=== PATIENT | female | born 1935 | race Caucasian/White ===

== ENCOUNTER 2018-02-27 03:47 | Emergency (ER) | END 2018-02-27 12:25 | disposition home or self-care (01) ==

== ENCOUNTER 2018-05-19 01:47 | Observation (INO) | payer MEDICARE, OTHER ==
[2018-05-19] VITALS (13 sets, daily range): BP systolic 87–162; BP diastolic 58–104; PULSE 67–84; RESP 12–21; Ht 160 cm; Wt 85.0 kg
[~2018-05-19] VITALS: Ht 160 cm; Wt 85.0 kg
[~2018-05-19 01:47] MED LIST: AMOX1TAB10 PO; CLOP75TA27 PO; DEXL60CA2 PO; DONE10TA7 PO; GLIM4TAB PO; LEVO88TA PO; LORA1TAB PO; LUBI24CA7 PO; MECL-77 PO; MEMA14CA PO; METF500T24 PO; METO-335 PO; ONDA4TAB14 PO; ROSU20TA PO; [UNRECOGNIZED DRUG - CODE] PO
--- NOTE | 2018-05-19 04:00 | ERD ---
ER Documentation Chief Complaint Chief Complaint Pt c/o CP and numbness and tingling in fingers HPI This is an 83-year-old female brought in by rescue with complaint of chest pain and numbness and tingling in her fingers. States that the numbness is really in her left arm tingling is in her left arm as well. Denies any fevers chills nausea vomiting. Chest pain is mild to moderate intensity with no exacerbating or alleviating factors. ROS All systems reviewed and are negative except as per history of present illness. Medications Home Meds Active Scripts Amoxicillin/Potassium Clav (Amox-Clav 875-125 mg Tablet) 875-125 mg Tab, 1 TAB PO BID for 10 Days, #20 TAB Prov:LYNN CHAPARRO MD 02/27/18 Ondansetron (Ondansetron Odt) 4 Mg Tab.rapdis, 4 MG PO Q6H PRN for NAUSEA AND/OR VOMITING, #10 TAB Prov:REBA BEYER MD 02/27/18 Reported Medications Levothyroxine Sodium* (Synthroid*) 88 Mcg Tablet, 88 MCG PO BEFORE BREAKFAST, #30 TAB 02/27/18 Rosuvastatin Calcium* (Crestor*) 20 Mg Tablet, 20 MG PO QHS, #30 TAB 02/27/18 Dexlansoprazole (Dexilant) 60 Mg Cap, 60 MG PO DAILY, #30 CAP 02/27/18 Lubiprostone* (Amitiza*) 24 Mcg Capsule, 24 MCG PO BID, #60 CAP 02/27/18 Metoprolol Succinate* (Toprol XL*) 25 Mg Tab.sr.24h, 25 MG PO DAILY, #30 TAB 02/27/18 Clopidogrel Bisulfate (Clopidogrel) 75 Mg Tablet, 75 MG PO DAILY, #30 TAB 02/27/18 Glimepiride* (Glimepiride*) 4 Mg Tablet, 4 MG PO WITH BREAKFAST DINNE, TAB 02/27/18 Metformin Hcl* (Metformin Hcl*) 500 Mg Tablet, 500 MG PO WITH BREAKFAST, #30 TAB 02/27/18 Meclizine Hcl* (Meclizine Hcl*) 25 Mg Tablet, 25 MG PO Q8H PRN for DIZZINESS, TAB 02/27/18 Memantine* (Namenda* XR) 14 Mg Cap.spr.24, 14 MG PO DAILY, #30 TAB 02/27/18 Donepezil* (Aricept*) 10 Mg Tablet, 10 MG PO DAILY, TAB 02/27/18 Lorazepam* (Lorazepam*) 1 Mg Tablet, 1 MG PO DAILY PRN for ANXIETY, #30 TAB 02/27/18 Amlodipine Bes/Olmesartan Med (Amlodipine-Olmesartan 5-20 mg) 1 Each Tablet, 1 EACH PO DAILY, TAB 02/27/18 Allergies Allergies: Coded Allergies: No Known Allergy (Unverified , 02/27/18) PMhx/Soc History of Surgery: Yes (appendectomy) Anesthesia Reaction: No Hx Neurological Disorder: No Hx Respiratory Disorders: No Hx Cardiac Disorders: Yes (htn, hld) Hx Psychiatric Problems: No Hx Miscellaneous Medical Probl: Yes (DM) Hx Alcohol Use: No Hx Substance Use: No Hx Tobacco Use: No Smoking Status: Never smoker Physical Exam Vitals Vital Signs Date Temp Pulse Resp B/P (MAP) Pulse Ox O2 O2 Flow FiO2 Time Delivery Rate 05/19/18 98.3 72 16 112/64 98 01:54 (80) Physical Exam Const: No acute distress Head: Atraumatic Eyes: Normal Conjunctiva ENT: Normal External Ears, Nose and Mouth. Neck: Full range of motion. No meningismus. Resp: Clear to auscultation bilaterally Cardio: Regular rate and rhythm, no murmurs Abd: Soft, non tender, non distended. Normal bowel sounds Skin: No petechiae or rashes Back: No midline or flank tenderness Ext: No cyanosis, or edema Neur: Awake and alert Psych: Normal Mood and Affect Result Diagram: 05/19/1820805/19/18 0209 Results 24 hrs Laboratory Tests Test 05/19/18 02:09 White Blood Count 8.8 10^3/ul Red Blood Count 4.55 10^6/ul Hemoglobin 13.2 g/dl Hematocrit 38.8 % Mean Corpuscular Volume 85.3 fl Mean Corpuscular Hemoglobin 29.0 pg Mean Corpuscular Hemoglobin Concent 34.0 g/dl Red Cell Distribution Width 13.9 % Platelet Count 264 10^3/UL Mean Platelet Volume 9.7 fl Immature Granulocytes % 0.300 % Neutrophils % 57.1 % Lymphocytes % 32.8 % Monocytes % 5.6 % Eosinophils % 3.6 % Basophils % 0.6 % Nucleated Red Blood Cells % 0.0 /100WBC Immature Granulocytes # 0.030 10^3/ul Neutrophils # 5.0 10^3/ul Lymphocytes # 2.9 10^3/ul Monocytes # 0.5 10^3/ul Eosinophils # 0.3 10^3/ul Basophils # 0.1 10^3/ul Nucleated Red Blood Cells # 0.0 10^3/ul Sodium Level 139 mmol/L Potassium Level 3.4 mmol/L Chloride Level 105 mmol/L Carbon Dioxide Level 18 mmol/L Anion Gap 16 Blood Urea Nitrogen 12 mg/dl Creatinine 0.72 mg/dl Est Glomerular Filtrat Rate mL/min mL/min Glucose Level 162 mg/dl Calcium Level 9.7 mg/dl Total Bilirubin 0.8 mg/dl Direct Bilirubin 0.00 mg/dl Indirect Bilirubin 0.8 mg/dl Aspartate Amino Transf (AST/SGOT) 32 IU/L Alanine Aminotransferase (ALT/SGPT) 18 IU/L Alkaline Phosphatase 94 IU/L Troponin I < 0.012 ng/ml B-Type Natriuretic Peptide 29 PG/ML Total Protein 7.5 g/dl Albumin 4.7 g/dl Globulin 2.80 g/dl Albumin/Globulin Ratio 1.67 Procedures/MDM EKG: Rate/Rhythm: [Normal Sinus Rhythm] QRS, ST, T-waves: [No changes consistent w/ acute ischemia] Impression: [No evidence of ischemia or arrhythmia] Chest X-ray 1V Interpreted by me: Soft Tissue: No acute abnormalities Bones: No acute abnormalities Mediastinum/Cardiac Silhouette/Lungs: [No acute abnormalities] Patient's symptoms are concerning for cardiac cause will require inpatient workup and continuous monitoring. Further w/u for ischemia, arrhythmia, PE or dissection will be deferred to the inpatient team. Accepting Care Team: Current data and ongoing care discussed. Time: 4 AM Primary Provider: Hospitalist Consulting: Deferred to inpatient team Outstanding Data: none Departure Diagnosis: Primary Impression: Chest pain Chest pain type: unspecified Qualified Codes: R07.9 - Chest pain, unspecified Condition: Serious GRAYSON MELGOZAAnastasia May 19, 2018 04:00
[2018-05-19] MEDS ORDERED: NITROGLYCERIN (SL) 0.4 MG TAB SL PRN (04:30)
[2018-05-19] MEDS ORDERED: ALBUTEROL/IPRATROPIUM (NEB) 3 ML AMP HHN PRN (04:30)
[2018-05-19] MEDS ORDERED: NACL 0.9% 3 ML SYG IV SCH (04:30)
[2018-05-19] MEDS ORDERED: LORAZEPAM 1 MG TAB PO PRN (04:30)
[2018-05-19] MEDS ORDERED: ACETAMINOPHEN 325 MG TAB PO PRN (04:30)
[2018-05-19] MEDS ORDERED: MECLIZINE 25 MG TAB PO PRN (04:30)
[2018-05-19] MEDS: PANTOPRAZOLE (EC) 40 MG TAB PO SCH (08:40)
[2018-05-19] MEDS: LEVOTHYROXINE 88 MCG TAB PO SCH (08:41)
[2018-05-19] MEDS: HEPARIN 5,000 UNIT/1 ML VIAL SC SCH ×2 (08:42→21:44)
[2018-05-19] MEDS ORDERED: OLMESARTAN MED PO SCH (09:00)
[2018-05-19] MEDS ORDERED: DONEPEZIL 10 MG TAB PO SCH (09:00)
[2018-05-19] MEDS ORDERED: [UNRECOGNIZED DRUG - OTHER] PO SCH (09:00)
[2018-05-19] MEDS ORDERED: CLOPIDOGREL 75 MG TAB PO SCH (09:00)
[2018-05-19] MEDS ORDERED: LUBIPROSTONE 24 MCG CAP PO SCH (09:00)
[2018-05-19] MEDS: METOPROLOL (XL) 25 MG TAB PO SCH (09:00)
[2018-05-19] MEDS ORDERED: AMLODIPINE BES PO SCH (09:00)
[2018-05-19] MEDS ORDERED: MEMANTINE 5 MG TAB PO SCH (09:00)
--- NOTE | 2018-05-19 09:28 | HP ---
Date/Time of Note Date/Time of Note DATE: 05/19/18 TIME: 09:23 Assessment/Plan VTE Prophylaxis Pharmacological prophylaxis: heparin Lines/Catheters IV Catheter Type (from Nrsg): Saline Lock Assessment/Plan Assessment/Plan 83-year-old female with dementia, hypertension, hypothyroidism, dyslipidemia, type 2 diabetes, possible CAD(due to the fact that she is on Plavix at home) here with chest pain. Will rule out ACS 1. Chest pain: Rule out ACS -Telemetry monitoring -Continue Plavix, statin. As needed nitro -2D echo cardiology consult 2. Hypertension: BP within goal 3. Type 2 diabetes: Continue metformin 4. Dementia: Continue donepezil 5. Dyslipidemia: Continue statin 6. Hypothyroidism: Continue Synthroid Result Diagram: 05/19/18 0209 05/19/18 020 Results 24hrs Laboratory Tests Test 05/19/18 02:09 05/19/18 07:42 05/19/18 09:01 White Blood Count 8.8 # Red Blood Count 4.55 Hemoglobin 13.2 Hematocrit 38.8 Mean Corpuscular Volume 85.3 Mean Corpuscular Hemoglobin 29.0 Mean Corpuscular Hemoglobin Concent 34.0 Red Cell Distribution Width 13.9 Platelet Count 264 # Mean Platelet Volume 9.7 Immature Granulocytes % 0.300 Neutrophils % 57.1 Lymphocytes % 32.8 Monocytes % 5.6 Eosinophils % 3.6 Basophils % 0.6 Nucleated Red Blood Cells % 0.0 Immature Granulocytes # 0.030 Neutrophils # 5.0 Lymphocytes # 2.9 Monocytes # 0.5 Eosinophils # 0.3 Basophils # 0.1 Nucleated Red Blood Cells # 0.0 Sodium Level 139 Potassium Level 3.4 L Chloride Level 105 Carbon Dioxide Level 18 L Anion Gap 16 H Blood Urea Nitrogen 12 Creatinine 0.72 Est Glomerular Filtrat Rate mL/min Glucose Level 162 Calcium Level 9.7 Total Bilirubin 0.8 Direct Bilirubin 0.00 Indirect Bilirubin 0.8 Aspartate Amino Transf (AST/SGOT) 32 Alanine Aminotransferase (ALT/SGPT) 18 Alkaline Phosphatase 94 Troponin I < 0.012 < 0.012 B-Type Natriuretic Peptide 29 Total Protein 7.5 Albumin 4.7 Globulin 2.80 Albumin/Globulin Ratio 1.67 Creatine Kinase 70 Creatine Kinase Index 2.1 Creatinine Kinase MB (Mass) 1.46 Bedside Glucose 105 HPI/ROS Admit Date/Time Admit Date/Time Hx of Present Illness This is an 83-year-old female with a history of dementia, hypertension, hypothyroidism, dyslipidemia, type 2 diabetes, possible CAD(given patient is on Plavix. CVA is also possibility) who presents the ER complaining of chest pain. Patient is slow when answering questions. She said chest pain is left-sided, described as tightness and pressure-like. She said this is her ribs episode of chest pain over the past year or 2. She states she did go to another hospital when she last had a chest pain. She is not sure what was done, but when I described cardiac cath, she denied. When presented to ER, vitals were stable. First troponin and EKG negative. CBC and CMP WNL. PMH/Family/Social Past Medical History Medications Current Medications IV Flush (NS 3 ml) 3 ml PER PROTOCOL IV ; Start 05/19/18 at 04:30 Ondansetron HCl (Zofran Inj) 4 mg Q6H PRN IV NAUSEA AND/OR VOMITING; Start at 04:30 Nitroglycerin (Nitroglycerin (Sl Tab) 0.4 Mg) 1 tab Q5M PRN SL CHEST PAIN; Start 05/19/18 at 04:30 Acetaminophen (Tylenol Tab) 650 mg Q6H PRN PO PAIN LEVEL 1-3 OR FEVER Last administered on 05/19/18at 08:40; Admin Dose 650 MG; Start 05/19/18 at 04:30 Heparin Sodium (Porcine) (Heparin (5000 Units/1ml)) 5,000 unit Q12 SC Last administered on 05/19/18at 08:42; Admin Dose 5,000 UNIT; Start 05/19/18 at 09:00 Albuterol/ Ipratropium (Duoneb) 3 ml Q2H RESP THERAPY PRN HHN SHORTNESS OF BREATH; Start 05/19/18 at 04:30 Clopidogrel Bisulfate (plaVIX) 75 mg DAILY PO Last administered on 05/19/18at 08:40; Admin Dose 75 MG; Start 05/19/18 at 09:00 Donepezil HCl (Aricept) 10 mg DAILY PO Last administered on 05/19/18at 08:41; Admin Dose 10 MG; Start 05/19/18 at 09:00 Levothyroxine Sodium (Synthroid) 88 mcg BEFORE BREAKFAST PO Last administered on 05/19/18at 08:41; Admin Dose 88 MCG; Start 05/19/18 at 07:00 Lorazepam (Ativan) 1 mg DAILY PRN PO ANXIETY; Start 05/19/18 at 04:30 Lubiprostone (Amitiza) 24 mcg BID PO Last administered on 05/19/18at 08:41; Admin Dose 24 MCG; Start 05/19/18 at 09:00 Meclizine HCl (Antivert) 25 mg Q8H PRN PO dizzy, vertigo; Start 05/19/18 at 04:30 Metoprolol Succinate (Toprol Xl) 25 mg DAILY PO ; Start 05/19/18 at 09:00 Miscellaneous Information 1 each DAILY PO ; Start 05/19/18 at 09:00; Status UNV Pantoprazole (Protonix Tab) 40 mg DAILY@06 PO Last administered on 05/19/18at 08:40; Admin Dose 40 MG; Start 05/19/18 at 06:00 Memantine (Namenda) 5 mg BID PO Last administered on 05/19/18at 08:41; Admin Dose 5 MG; Start 05/19/18 at 09:00 Atorvastatin Calcium (Lipitor) 80 mg DAILY@21 PO ; Start 05/19/18 at 21:00 Coded Allergies: No Known Allergy (Unverified , 02/27/18) Family History Significant Family History: no pertinent family hx Social History Alcohol Use: none Smoking Status: Never smoker Drug Use: none Exam/Review of Systems Vital Signs Vitals Vital Signs Date Temp Pulse Resp B/P (MAP) Pulse Ox O2 O2 Flow FiO2 Time Delivery Rate 05/19/18 98.6 66 16 118/67 96 Room Air 06:30 (84) Exam Exam Constitutional: alert, oriented, well developed, other Head: normocephalic, atraumatic Respiratory: normal air movement Cardiovascular: regular rate and rhythm Gastrointestinal: soft Extremities: normal pulses PMH: see HPI PSH: see HPI . GRAYSON WILLIAM MD May 19, 2018 09:28
[2018-05-19] MEDS ORDERED: AMLODIPINE 5 MG TAB PO SCH (12:55)
[2018-05-19] MEDS ORDERED: LOSARTAN 50 MG TAB PO SCH (12:56)
[2018-05-19] MEDS: ONDANSETRON 4 MG INJ IV PRN ×2 (13:13→21:36)
--- NOTE | 2018-05-19 15:12 | PN ---
Date/Time of Note Date/Time of Note DATE: 05/19/18 TIME: 15:05 Assessment/Plan VTE Prophylaxis SCD applied (from Nsg): Yes Pharmacological prophylaxis: heparin Lines/Catheters IV Catheter Type (from Nrsg): Saline Lock Assessment/Plan Hospital Course 83 yo female with h/o hypertension and DMII who has suffered from recurrent naus ea, dyspepsia and vomiting for which she presetns to the hospital. Problem has been ongoing for at least months. Greatly impairs quality of life. Can't eat. Has never had EGD - GI consult for EGD - Needs antacids and antiemetics - ACS excluded, doubt this is a cardiac issue - Of note this patient does not have dementia, seems to have normal cognition. Dc memenatine and donepazil - Never had MA or stroke. Will stop plavix - No need for atorvastatin 82 Result Diagram: 05/19/18 0209 05/19/18 0209 Results 24hrs Laboratory Tests Test 05/19/18 02:09 05/19/18 07:42 05/19/18 09:01 05/19/18 14:08 White Blood Count 8.8 # Red Blood Count 4.55 Hemoglobin 13.2 Hematocrit 38.8 Mean Corpuscular 85.3 Volume Mean Corpuscular 29.0 Hemoglobin Mean Corpuscular 34.0 Hemoglobin Concent Red Cell 13.9 Distribution Width Platelet Count 264 # Mean Platelet Volume 9.7 Immature 0.300 Granulocytes % Neutrophils % 57.1 Lymphocytes % 32.8 Monocytes % 5.6 Eosinophils % 3.6 Basophils % 0.6 Nucleated Red Blood 0.0 Cells % Immature 0.030 Granulocytes # Neutrophils # 5.0 Lymphocytes # 2.9 Monocytes # 0.5 Eosinophils # 0.3 Basophils # 0.1 Nucleated Red Blood 0.0 Cells # Sodium Level 139 Potassium Level 3.4 L Chloride Level 105 Carbon Dioxide Level 18 L Anion Gap 16 H Blood Urea Nitrogen 12 Creatinine 0.72 Est Glomerular Filtrat Rate mL/min Glucose Level 162 Calcium Level 9.7 Total Bilirubin 0.8 Direct Bilirubin 0.00 Indirect Bilirubin 0.8 Aspartate Amino 32 Transf (AST/SGOT) Alanine 18 Aminotransferase (AL T/SGPT) Alkaline Phosphatase 94 Troponin I < 0.012 < 0.012 < 0.012 B-Type Natriuretic 29 Peptide Total Protein 7.5 Albumin 4.7 Globulin 2.80 Albumin/Globulin 1.67 Ratio Creatine Kinase 70 108 Creatine Kinase 2.1 2.1 Index Creatinine Kinase MB 1.46 2.24 (Mass) Bedside Glucose 105 Subjective 24 Hr Interval Summary Free Text/Dictation Continues to have nausea and vomiting Feels a bit woozy Exam/Review of Systems Vital Signs Vitals Vital Signs Date Temp Pulse Resp B/P (MAP) Pulse Ox O2 O2 Flow FiO2 Time Delivery Rate 05/19/18 71 12 134/66 99 Room Air 15:00 (88) 05/19/18 98.0 12:46 Exam Constitutional: alert, oriented, well developed Psych: no complaints, nl mood/affect Head: normocephalic, atraumatic Eyes: nl conjunctiva, EOMI, nl lids, nl sclera, PERRL ENMT: nl external ears & nose, nl lips & teeth, nl nasal mucosa & septum Neck: supple, non-tender Respiratory: clear to auscultation, normal air movement Cardiovascular: regular rate and rhythm, nl pulses Gastrointestinal: soft, nl liver, spleen, non-tender Musculoskeletal: nl extremities to inspection, nl gait and stance Extremities: normal pulses Neurological: CASKET TRIMMER II-XII intact, nl mental status, nl speech, nl strength Skin: nl turgor; No rash or lesions Lymph: nl lymph nodes Medications Medications Current Medications IV Flush (NS 3 ml) 3 ml PER PROTOCOL IV ; Start 05/19/18 at 04:30 Ondansetron HCl (Zofran Inj) 4 mg Q6H PRN IV NAUSEA AND/OR VOMITING Last administered on 05/19/18at 13:13; Admin Dose 4 MG; Start 05/19/18 at 04:30 Nitroglycerin (Nitroglycerin (Sl Tab) 0.4 Mg) 1 tab Q5M PRN SL CHEST PAIN; St art 05/19/18 at 04:30 Acetaminophen (Tylenol Tab) 650 mg Q6H PRN PO PAIN LEVEL 1-3 OR FEVER Last adm inistered on 05/19/18at 08:40; Admin Dose 650 MG; Start 05/19/18 at 04:30 Heparin Sodium (Porcine) (Heparin (5000 Units/1ml)) 5,000 unit Q12 SC Last administered on 05/19/18at 08:42; Admin Dose 5,000 UNIT; Start 05/19/18 at 09:00 Albuterol/ Ipratropium (Duoneb) 3 ml Q2H RESP THERAPY PRN HHN SHORTNESS OF BREATH; Start 05/19/18 at 04:30 Clopidogrel Bisulfate (plaVIX) 75 mg DAILY PO Last administered on 05/19/18 08:40; Admin Dose 75 MG; Start 05/19/18 at 09:00 Donepezil HCl (Aricept) 10 mg DAILY PO Last administered on 05/19/18 08:41; Admin Dose 10 MG; Start 05/19/18 at 09:00 Levothyroxine Sodium (Synthroid) 88 mcg BEFORE BREAKFAST PO Last administered on 05/19/18 08:41; Admin Dose 88 MCG; Start 05/19/18 at 07:00 Lorazepam (Ativan) 1 mg DAILY PRN PO ANXIETY; Start 05/19/18 at 04:30 Lubiprostone (Amitiza) 24 mcg BID PO Last administered on 05/19/18at 08:41; Admin Dose 24 MCG; Start 05/19/18 at 09:00 Meclizine HCl (Antivert) 25 mg Q8H PRN PO dizzy, vertigo; Start 05/19/18 at 04:30 Metoprolol Succinate (Toprol Xl) 25 mg DAILY PO ; Start 05/19/18 at 09:00 Pantoprazole (Protonix Tab) 40 mg DAILY@06 PO Last administered on 05/19/18at 08:40; Admin Dose 40 MG; Start 05/19/18 at 06:00 Memantine (Namenda) 5 mg BID PO Last administered on 05/19/18 08:41; Admin Dose 5 MG; Start 05/19/18 at 09:00 Atorvastatin Calcium (Lipitor) 80 mg DAILY@21 PO ; Start 05/19/18 at 21:00 Amlodipine Besylate (Norvasc) 5 mg DAILY PO Last administered on 05/19/18 13:25; Admin Dose 5 MG; Start 05/19/18 at 12:55 Losartan Potassium (Cozaar) 100 mg DAILY PO Last administered on 05/19/18 13:25; Admin Dose 100 MG; Start 05/19/18 at 12:56 PORSHA FOREMAN MD May 19, 2018 15:12
--- NOTE | 2018-05-19 15:32 | RADRPT ---
Echocardiogram Report Patient Name: ANAHY DURHAM Gender: Female Date: 1935 Study Date: 19-May-2018 Stiff Leg Derrick Operator: Elvira Poole RDCS Location: [facility] Ref. Physician: GRAYSON WILLIAM Quality: Technically Difficult Study Procedures: Transthoracic echocardiogram with complete 2D, M-Mode, and doppler examination. Indications: Chest Pain. 2D/M Mode Doppler Measurement Value Normal Ranges Measurement Value Normal Ranges LVIDd 2D 3.7 3.5 - 5.6 cm AV Peak Yuri 1.4 m/sec LVIDs 2D 2.5 2.1 - 4.1 cm AV Peak PG 7.0 mmHg FS 2D 33.2 % LVOT Peak Yuri 1.0 m/sec LVPWd 2D 0.9 0.6 - 1.1 cm LVOT Peak PG 4.0 mmHg IVSd 2D 1.1 0.6 - 1.1 cm MV E Peak Yuri 0.5 m/sec IVS/LVPW 2D 1.2 MV A Peak Yuri 1.0 m/sec AoR Diam 2D 2.9 2.0 - 3.7 cm MV E/A 0.5 LA/Ao 2D 1 0 - 1 MV Decel Time 243 msec EDV 2D 51.9 cm3 MV E/A 0.5 ESV 2D 15.4 cm3 TR Peak Yuri 2.4 m/sec LA Dimen 2D 2.4 2.3 - 4.0 cm TR Peak PG 24.0 mmHg RVSP 27.0 mmHg RA Pressure 3.0 Findings Left Ventricle: Normal left ventricular systolic function. Normal left ventricular cavity size. Mild concentric left ventricular hypertrophy. Ejection fraction is visually estimated at 60 %. Tissue Doppler/Mitral Doppler indices are consistent with impaired relaxation (Stage I diastolic dysfunction). Right Ventricle: Normal right ventricular size. Normal right ventricular systolic function. Left Atrium: The left atrium is normal in size. Right Atrium: The right atrium is normal in size. Mitral Valve: Mitral valve leaflets appear mildly thickened. Mild mitral annular calcification. Trace mitral regurgitation. Aortic Valve: Normal appearance of the aortic valve. No significant aortic stenosis or insufficiency. Tricuspid Valve: Normal appearance of the tricuspid valve. Estimated peak PA systolic pressure 27 mmHg. There is trace tricuspid regurgitation. Pulmonic Valve: Normal pulmonic valve appearance. Pericardium: Normal pericardium with no significant pericardial effusion. Aorta: Normal aortic root. IVC: Normal size and normal respiratory collapse consistent with normal right atrial pressure. Conclusions 1.Normal left ventricular systolic function. Normal left ventricular cavity size. Mild concentric left ventricular hypertrophy. Ejection fraction is visually estimated at 60 %. Tissue Doppler/Mitral Doppler indices are consistent with impaired relaxation (Stage I diastolic dysfunction). 2.Mitral valve leaflets appear mildly thickened. Mild mitral annular calcification. Trace mitral regurgitation. 3.Normal appearance of the tricuspid valve. Estimated peak PA systolic pressure 27 mmHg. There is trace tricuspid regurgitation. Electronically Signed By: Selwyn Hayes 19-May-2018 15:31:33 -0800 Patient Name: ANAHY DURHAM Study Date: 19-May-2018 [id number]
--- NOTE | 2018-05-19 15:53 | CONS ---
Date/Time of Note Date/Time of Note DATE: 05/19/18 TIME: 15:53 Assessment/Plan Assessment/Plan Hospital Course Summary Assessment and Plan: Assessment: Persistent nausea/vomiting Poor appetite Upper abdominal discomfort History of thyroidectomy Plan: Continue PPI and antiemetic medication as needed NPO after 05/20/18 0400 EGD tomorrow Endoscopy - risks/benefits/alternatives/indications of procedure and sedation/anesthesia discussed with patient and patients family who states understanding and gives informed consent to proceed. Further recommendations based on clinical course Patient seen in collaboration with Dr. Abreu Result Diagram: 05/19/18 0209 05/19/18 0209 Results 24hrs Laboratory Tests Test 05/19/18 02:09 05/19/18 07:42 05/19/18 09:01 05/19/18 14:08 White Blood Count 8.8 # Red Blood Count 4.55 Hemoglobin 13.2 Hematocrit 38.8 Mean Corpuscular 85.3 Volume Mean Corpuscular 29.0 Hemoglobin Mean Corpuscular 34.0 Hemoglobin Concent Red Cell 13.9 Distribution Width Platelet Count 264 # Mean Platelet Volume 9.7 Immature 0.300 Granulocytes % Neutrophils % 57.1 Lymphocytes % 32.8 Monocytes % 5.6 Eosinophils % 3.6 Basophils % 0.6 Nucleated Red Blood 0.0 Cells % Immature 0.030 Granulocytes # Neutrophils # 5.0 Lymphocytes # 2.9 Monocytes # 0.5 Eosinophils # 0.3 Basophils # 0.1 Nucleated Red Blood 0.0 Cells # Sodium Level 139 Potassium Level 3.4 L Chloride Level 105 Carbon Dioxide Level 18 L Anion Gap 16 H Blood Urea Nitrogen 12 Creatinine 0.72 Est Glomerular Filtrat Rate mL/min Glucose Level 162 Calcium Level 9.7 Total Bilirubin 0.8 Direct Bilirubin 0.00 Indirect Bilirubin 0.8 Aspartate Amino 32 Transf (AST/SGOT) Alanine 18 Aminotransferase (AL T/SGPT) Alkaline Phosphatase 94 Troponin I < 0.012 < 0.012 < 0.012 B-Type Natriuretic 29 Peptide Total Protein 7.5 Albumin 4.7 Globulin 2.80 Albumin/Globulin 1.67 Ratio Creatine Kinase 70 108 Creatine Kinase 2.1 2.1 Index Creatinine Kinase MB 1.46 2.24 (Mass) Bedside Glucose 105 CC: PRIYANKA ABREU MD ; Consultation Date/Type/Reason Admit Date/Time Date of Consultation: May 19, 2018 Type of Consult GI Reason for Consultation Persistent nausea/vomiting Hx of Present Illness This is an 83-year-old female with past medical history of diabetes, hypertension, thyroidectomy who ended to the hospital with complaints of persistent nausea and vomiting with upper abdominal pain patient states the sym ptoms have been off and on for the past 6 months with workup in the hospital cardiac etiology has been ruled out GI has been consulted for possible endoscopy. Patient states she is previously had an endoscopy several years ago, was on Plavix which has been held last dose given 05/19/18. Patient complains of poor appetite. She denies melena, hematochezia, diarrhea, or constipation. Started on pantoprazole in the hospital. Discussed plan for upper endoscopy tomorrow as patient had small amounts of seen which is today and I reviewed risk/benefits alternatives with patient and family all verbalized understanding and are agreeable to procedure. Review of Systems: A 12 system, review was conducted and is negative except as noted in the HPI or here. Past Medical History Medications Current Medications IV Flush (NS 3 ml) 3 ml PER PROTOCOL IV ; Start 05/19/18 at 04:30 Ondansetron HCl (Zofran Inj) 4 mg Q6H PRN IV NAUSEA AND/OR VOMITING Last administered on 05/19/18at 13:13; Admin Dose 4 MG; Start 05/19/18 at 04:30 Nitroglycerin (Nitroglycerin (Sl Tab) 0.4 Mg) 1 tab Q5M PRN SL CHEST PAIN; Start 05/19/18 at 04:30 Acetaminophen (Tylenol Tab) 650 mg Q6H PRN PO PAIN LEVEL 1-3 OR FEVER Last administered on 05/19/18at 08:40; Admin Dose 650 MG; Start 05/19/18 at 04:30 Heparin Sodium (Porcine) (Heparin (5000 Units/1ml)) 5,000 unit Q12 SC Last administered on 05/19/18at 08:42; Admin Dose 5,000 UNIT; Start 05/19/18 at 09:00 Albuterol/ Ipratropium (Duoneb) 3 ml Q2H RESP THERAPY PRN HHN SHORTNESS OF BREATH; Start 05/19/18 at 04:30 Levothyroxine Sodium (Synthroid) 88 mcg BEFORE BREAKFAST PO Last administered on 05/19/18at 08:41; Admin Dose 88 MCG; Start 05/19/18 at 07:00 Lorazepam (Ativan) 1 mg DAILY PRN PO ANXIETY; Start 05/19/18 at 04:30 Meclizine HCl (Antivert) 25 mg Q8H PRN PO dizzy, vertigo; Start 05/19/18 at 04:30 Metoprolol Succinate (Toprol Xl) 25 mg DAILY PO ; Start 05/19/18 at 09:00 Pantoprazole (Protonix Tab) 40 mg DAILY@06 PO Last administered on 05/19/18at 08:40; Admin Dose 40 MG; Start 05/19/18 at 06:00 Allergies: Coded Allergies: No Known Allergy (Unverified , 02/27/18) Social History Smoking Status: Never smoker Exam/Review of Systems Vital Signs Vitals Vital Signs Date Temp Pulse Resp B/P (MAP) Pulse Ox O2 O2 Flow FiO2 Time Delivery Rate 05/19/18 71 12 134/66 99 Room Air 15:00 (88) 05/19/18 98.0 12:46 Exam PHYSICAL EXAMINATION: GENERAL: Well developed, well nourished, alert & oriented x 3, in no acute distress SKIN: No lesions, no stigmata chronic liver disease, no evidence of bleeding diathesis LYMPHATIC: No palpable lymphadenopathy. HEAD: Normocephalic, atraumatic, no tenderness. EYES: Pupils equal reactive to light, no discharge. EARS/NOSE AND THROAT: Ears normal, nose normal, oropharynx normal NECK: Supple, no masses CHEST: Inspection within normal limits. CARDIOVASCULAR: Heart: Regular rate and rhythm, no murmurs, gallops or rubs. RESPIRATORY: Lungs clear to auscultation GASTROINTESTINAL AND LIVER: Abdomen: Soft, non tenderness, non-distended, no hernias, no masses, no organomegaly, no ascites, no guarding, no rebound tenderness, normoactive bowel sounds. Rectal: Deferred. GENITOURINARY: not examined EXTREMITIES: No cyanosis, clubbing or edema. Constitutional: alert, oriented Psych: no complaints Head: normocephalic Eyes: nl conjunctiva ENMT: nl external ears & nose Neck: supple, non-tender Respiratory: clear to auscultation Cardiovascular: regular rate and rhythm Gastrointestinal: soft, bowel sounds, tender (Upper abdominal tenderness); No firm, No hepatomegaly, No rebound or guarding Medications Medications Current Medications IV Flush (NS 3 ml) 3 ml PER PROTOCOL IV ; Start 05/19/18 at 04:30 Ondansetron HCl (Zofran Inj) 4 mg Q6H PRN IV NAUSEA AND/OR VOMITING Last administered on 05/19/18at 13:13; Admin Dose 4 MG; Start 05/19/18 at 04:30 Nitroglycerin (Nitroglycerin (Sl Tab) 0.4 Mg) 1 tab Q5M PRN SL CHEST PAIN; Start 05/19/18 at 04:30 Acetaminophen (Tylenol Tab) 650 mg Q6H PRN PO PAIN LEVEL 1-3 OR FEVER Last administered on 05/19/18 08:40; Admin Dose 650 MG; Start 05/19/18 at 04:30 Heparin Sodium (Porcine) (Heparin (5000 Units/1ml)) 5,000 unit Q12 SC Last administered on 05/19/18at 08:42; Admin Dose 5,000 UNIT; Start 05/19/18 at 09:00 Albuterol/ Ipratropium (Duoneb) 3 ml Q2H RESP THERAPY PRN HHN SHORTNESS OF BREATH; Start 05/19/18 at 04:30 Levothyroxine Sodium (Synthroid) 88 mcg BEFORE BREAKFAST PO Last administered on 05/19/18at 08:41; Admin Dose 88 MCG; Start 05/19/18 at 07:00 Lorazepam (Ativan) 1 mg DAILY PRN PO ANXIETY; Start 05/19/18 at 04:30 Meclizine HCl (Antivert) 25 mg Q8H PRN PO dizzy, vertigo; Start 05/19/18 at 04:30 Metoprolol Succinate (Toprol Xl) 25 mg DAILY PO ; Start 05/19/18 at 09:00 Pantoprazole (Protonix Tab) 40 mg DAILY@06 PO Last administered on 05/19/18at 08:40; Admin Dose 40 MG; Start 05/19/18 at 06:00 KATHLEEN KNIGHT May 19, 2018 15:53
[2018-05-19] MEDS ORDERED: ATORVASTATIN 80 MG TAB PO SCH (21:00)
[2018-05-20] VITALS (17 sets, daily range): BP systolic 90–134; BP diastolic 50–103; PULSE 16–81; RESP 11–29
[2018-05-20] MEDS: PANTOPRAZOLE (EC) 40 MG TAB PO SCH (05:13)
[2018-05-20] MEDS: LEVOTHYROXINE 88 MCG TAB PO SCH (06:19)
[2018-05-20] MEDS: METOPROLOL (XL) 25 MG TAB PO SCH (08:49)
[2018-05-20] MEDS: HEPARIN 5,000 UNIT/1 ML VIAL SC SCH ×2 (08:50→20:27)
[2018-05-20] MEDS ORDERED: INFLUENZA VIRUS VACCINE 0.5 ML (DISPENSING) IM* ONE (09:00)
[2018-05-20] MEDS ORDERED: DEXTROSE 5%-0.45% NACL 1,000 ML IV STA (12:44)
--- NOTE | 2018-05-20 14:53 | PN ---
Date/Time of Note Date/Time of Note DATE: 05/20/18 TIME: 14:51 Assessment/Plan VTE Prophylaxis Risk score (from Ns)>0 risk: 4 SCD applied (from Ns): Yes SCD contraindicated: low risk/ambulating Pharmacological prophylaxis: NA/contraindicated Pharm contraindication: surgical contra Lines/Catheters IV Catheter Type (from Nrs): Saline Lock Assessment/Plan Hospital Course Assessment and plan 1. Atypical chest pain ruled out for ACS by enzymes EKG symptoms. Stable observe 2. Nausea vomiting, rule out symptomatic gastritis. Stable, EGD today 3. Mild cognitive impairment versus dementia? Rescreen as outpatient 4. Coronary disease? Stroke? History of Plavix use 5. Type 2 diabetes 6. Dyslipidemia 7. Metabolic syndrome 8. Hypothyroidism 9. Diverticulosis S: Intermittent nausea no further vomiting. Denies any chest pain dyspnea, GI bleed symptoms, Denies any abdominal pain, alcohol or nonsteroidal use Objective vital signs stable sinus rhythm Physical exam No pallor adenopathy icterus Regular no murmur gallop Clear Benign No edema Result Diagram: 05/20/18 0539 05/20/18 0539 Results 24hrs Laboratory Tests Test 05/20/18 05:39 White Blood Count 7.9 Red Blood Count 4.78 Hemoglobin 13.8 Hematocrit 42.1 Mean Corpuscular Volume 88.1 Mean Corpuscular Hemoglobin 28.9 L Mean Corpuscular Hemoglobin Concent 32.8 Red Cell Distribution Width 14.3 Platelet Count 249 Mean Platelet Volume 11.1 H Immature Granulocytes % 0.100 Neutrophils % 49.4 Lymphocytes % 40.6 Monocytes % 5.4 Eosinophils % 3.9 Basophils % 0.6 Nucleated Red Blood Cells % 0.0 Immature Granulocytes # 0.010 Neutrophils # 3.9 Lymphocytes # 3.2 H Monocytes # 0.4 Eosinophils # 0.3 Basophils # 0.1 Nucleated Red Blood Cells # 0.0 Sodium Level 137 Potassium Level 4.1 Chloride Level 99 Carbon Dioxide Level 28 # Anion Gap 10 # Blood Urea Nitrogen 18 Creatinine 1.08 H Est Glomerular Filtrat Rate mL/min Glucose Level 116 # Hemoglobin A1c 5.8 Calcium Level 9.5 Magnesium Level 2.3 Total Bilirubin 1.1 Direct Bilirubin 0.00 Indirect Bilirubin 1.1 Aspartate Amino Transf (AST/SGOT) 30 Alanine Aminotransferase (ALT/SGPT) 23 Alkaline Phosphatase 67 Total Protein 7.3 Albumin 4.3 Globulin 3.00 Albumin/Globulin Ratio 1.43 Triglycerides Level 159 H Cholesterol Level 181 LDL Cholesterol, Calculated 83 HDL Cholesterol 66 Cholesterol/HDL Ratio 2.7 Thyroid Stimulating Hormone (TSH) 2.990 Exam/Review of Systems Vital Signs Vitals Vital Signs Date Temp Pulse Resp B/P (MAP) Pulse Ox O2 O2 Flow FiO2 Time Delivery Rate 05/20/18 63 12:00 05/20/18 98.2 18 99/57 (71) 95 11:20 05/20/18 Room Air 05:46 Medications Medications Current Medications IV Flush (NS 3 ml) 3 ml PER PROTOCOL IV ; Start 05/19/18 at 04:30 Ondansetron HCl (Zofran Inj) 4 mg Q6H PRN IV NAUSEA AND/OR VOMITING Last admi nistered on 05/19/18at 21:36; Admin Dose 4 MG; Start 05/19/18 at 04:30 Nitroglycerin (Nitroglycerin (Sl Tab) 0.4 Mg) 1 tab Q5M PRN SL CHEST PAIN; Start 05/19/18 at 04:30 Acetaminophen (Tylenol Tab) 650 mg Q6H PRN PO PAIN LEVEL 1-3 OR FEVER Last administered on 05/19/18at 08:40; Admin Dose 650 MG; Start 05/19/18 at 04:30 Heparin Sodium (Porcine) (Heparin (5000 Units/1ml)) 5,000 unit Q12 SC Last a dministered on 05/19/18at 21:44; Admin Dose 5,000 UNIT; Start 05/19/18 at 09:00 Albuterol/ Ipratropium (Duoneb) 3 ml Q2H RESP THERAPY PRN HHN SHORTNESS OF BREATH; Start 05/19/18 at 04:30 Levothyroxine Sodium (Synthroid) 88 mcg BEFORE BREAKFAST PO Last administered on 05/19/18at 08:41; Admin Dose 88 MCG; Start 05/19/18 at 07:00 Lorazepam (Ativan) 1 mg DAILY PRN PO ANXIETY; Start 05/19/18 at 04:30 Meclizine HCl (Antivert) 25 mg Q8H PRN PO dizzy, vertigo; Start 05/19/18 at 04:30 Metoprolol Succinate (Toprol Xl) 25 mg DAILY PO ; Start 05/19/18 at 09:00 Pantoprazole (Protonix Tab) 40 mg DAILY@06 PO Last administered on 05/19/18at 08:40; Admin Dose 40 MG; Start 05/19/18 at 06:00 Dextrose/Sodium Chloride 1,000 ml @ 50 mls/hr Q20H STAT IV Last administered on 05/20/18at 12:57; Admin Dose 50 MLS/HR; Start 05/20/18 at 12:44; Stop 05/21/18 at 08:43 SIENNA SAUCEDA MD May 20, 2018 14:53
--- NOTE | 2018-05-20 15:38 | HPN ---
Date/Time of Note Date/Time of Note DATE: 05/20/18 TIME: 15:38 Interval H&P Admission Note Pt. seen H&P reviewed: No system changes ILA PIERCE May 20, 2018 15:38
--- NOTE | 2018-05-20 15:48 | PREAC ---
Date/Time of Note Date/Time of Note DATE: 05/20/18 TIME: 15:45 Anesthesia Eval and Record Evaluation Time Pre-Procedure Interview DATE: 05/20/18 TIME: 15:45 Age 83 Sex female NPO: 8 hrs Preoperative diagnosis persistant N/V, abd discomfort Planned procedure EGD Past Medical History Past Medical History: Includes Cardio: HTN, Dyslipidemia, CAD Endo: Diabetes Surgery & Anesthesia Issues No known issue Meds Anticoagulation: Yes Beta Dory within 24 hr: Yes Active Scripts Amoxicillin/Potassium Clav (Amox-Clav 875-125 mg Tablet) 875-125 mg Tab, 1 TAB PO BID for 10 Days, #20 TAB Prov:LYNN CHAPARRO MD 02/27/18 Ondansetron (Ondansetron Odt) 4 Mg Tab.rapdis, 4 MG PO Q6H PRN for NAUSEA AND/OR VOMITING, #10 TAB Prov:REBA BEYER MD 02/27/18 Reported Medications Levothyroxine Sodium* (Synthroid*) 88 Mcg Tablet, 88 MCG PO BEFORE BREAKFAST, #30 TAB 02/27/18 Rosuvastatin Calcium* (Crestor*) 20 Mg Tablet, 20 MG PO QHS, #30 TAB 02/27/18 Dexlansoprazole (Dexilant) 60 Mg Cap.mp, 60 MG PO DAILY, #30 CAP 02/27/18 Lubiprostone* (Amitiza*) 24 Mcg Capsule, 24 MCG PO BID, #60 CAP 02/27/18 Metoprolol Succinate* (Toprol XL*) 25 Mg Tab.sr.24h, 25 MG PO DAILY, #30 TAB 02/27/18 Clopidogrel Bisulfate (Clopidogrel) 75 Mg Tablet, 75 MG PO DAILY, #30 TAB 02/27/18 Glimepiride* (Glimepiride*) 4 Mg Tablet, 4 MG PO WITH BREAKFAST DINNE, TAB 02/27/18 Metformin Hcl* (Metformin Hcl*) 500 Mg Tablet, 500 MG PO WITH BREAKFAST, #30 TAB 02/27/18 Meclizine Hcl* (Meclizine Hcl*) 25 Mg Tablet, 25 MG PO Q8H PRN for DIZZINESS, TAB 02/27/18 Memantine* (Namenda* XR) 14 Mg Cap.spr.24, 14 MG PO DAILY, #30 TAB 02/27/18 Donepezil* (Aricept*) 10 Mg Tablet, 10 MG PO DAILY, TAB 02/27/18 Lorazepam* (Lorazepam*) 1 Mg Tablet, 1 MG PO DAILY PRN for ANXIETY, #30 TAB 02/27/18 Amlodipine Bes/Olmesartan Med (Amlodipine-Olmesartan 5-20 mg) 1 Each Tablet, 1 EACH PO DAILY, TAB 02/27/18 Current Medications IV Flush (NS 3 ml) 3 ml PER PROTOCOL IV ; Start 05/19/18 at 04:30 Ondansetron HCl (Zofran Inj) 4 mg Q6H PRN IV NAUSEA AND/OR VOMITING Last administered on 05/19/18at 21:36; Admin Dose 4 MG; Start 05/19/18 at 04:30 Nitroglycerin (Nitroglycerin (Sl Tab) 0.4 Mg) 1 tab Q5M PRN SL CHEST PAIN; Start 05/19/18 at 04:30 Acetaminophen (Tylenol Tab) 650 mg Q6H PRN PO PAIN LEVEL 1-3 OR FEVER Last administered on 05/19/18at 08:40; Admin Dose 650 MG; Start 05/19/18 at 04:30 Heparin Sodium (Porcine) (Heparin (5000 Units/1ml)) 5,000 unit Q12 SC Last administered on 05/19/18at 21:44; Admin Dose 5,000 UNIT; Start 05/19/18 at 09:00 Albuterol/ Ipratropium (Duoneb) 3 ml Q2H RESP THERAPY PRN HHN SHORTNESS OF BREATH; Start 05/19/18 at 04:30 Levothyroxine Sodium (Synthroid) 88 mcg BEFORE BREAKFAST PO Last administered on 05/19/18at 08:41; Admin Dose 88 MCG; Start 05/19/18 at 07:00 Lorazepam (Ativan) 1 mg DAILY PRN PO ANXIETY; Start 05/19/18 at 04:30 Meclizine HCl (Antivert) 25 mg Q8H PRN PO dizzy, vertigo; Start 05/19/18 at 04:30 Metoprolol Succinate (Toprol Xl) 25 mg DAILY PO ; Start 05/19/18 at 09:00 Pantoprazole (Protonix Tab) 40 mg DAILY@06 PO Last administered on 05/19/18at 08:40; Admin Dose 40 MG; Start 05/19/18 at 06:00 Dextrose/Sodium Chloride 1,000 ml @ 50 mls/hr Q20H STAT IV Last administered on 05/20/18at 12:57; Admin Dose 50 MLS/HR; Start 05/20/18 at 12:44; Stop 05/21/18 at 08:43 Meds reviewed: Yes Allergies Coded Allergies: No Known Allergy (Unverified , 02/27/18) Allergies Reviewed: Yes Labs/Studies Labs Reviewed: Reviewed by anesthesiologist Result Diagram: 05/20/18 0539 05/20/18 0539 Laboratory Tests 05/20/18 05:39 test: N/A Studies: ECG (sr), CXR (Aortic sclerosis) Pre-procedure Exam Last vitals Vital Signs Date Temp Pulse Resp B/P (MAP) Pulse Ox O2 O2 Flow FiO2 Time Delivery Rate 05/20/18 63 12:00 05/20/18 98.2 18 99/57 (71) 95 11:20 05/20/18 Room Air 05:46 Airway: Adequate mouth opening Mallampati: Mallampati I Teeth: Normal Lung: Normal Heart: Normal ASA Physical Status ASA physical status: 2 Emergency: None Planned Anesthetic General/MAC: MAC Planned Pain Management Parenteral pain med Pre-operative Attestations Prior to commencing anesthesia and surgery, the patient was re-evaluated, there was verification of: *The patient's identity *The results of appropriate recent lab work and preoperative vital signs *The above evaluation not changing prior to induction *Anesthetic plan, risk benefits, alternative and complications discussed with patient/family; questions answered; patient/family understands, accepts and wishes to proceed. JACINTO MENDENHALL MD May 20, 2018 15:48
[2018-05-20] MEDS ORDERED: ONDANSETRON 4 MG INJ IV PRN (16:00)
--- NOTE | 2018-05-20 17:51 | PAC ---
Date/Time of Note Date/Time of Note DATE: 05/20/18 TIME: 17:50 Post-Anesthesia Notes Post-Anesthesia Note Last documented vital signs Vital Signs Date Temp Pulse Resp B/P (MAP) Pulse Ox O2 O2 Flow FiO2 Time Delivery Rate 05/20/18 98 68 12 117/63 92 Room Air 16:58 (81) 05/20/18 98.0 16:13 Activity: WNL Respiratory function: WNL Cardiovascular function: WNL Mental status: Baseline Pain reasonably controlled: Yes Hydration appropriate: Yes Nausea/Vomiting absent: No JACINTO MENDENHALL MD May 20, 2018 17:51
[2018-05-21] VITALS (8 sets, daily range): BP systolic 99–120; BP diastolic 55–63; PULSE 63–88; RESP 16–18
[2018-05-21] MEDS: PANTOPRAZOLE (EC) 40 MG TAB PO SCH (05:47)
[2018-05-21] MEDS: LEVOTHYROXINE 88 MCG TAB PO SCH (06:01)
[2018-05-21] MEDS: METOPROLOL (XL) 25 MG TAB PO SCH (08:48)
[2018-05-21] MEDS: HEPARIN 5,000 UNIT/1 ML VIAL SC SCH (09:01)
--- NOTE | 2018-05-21 15:47 | PN ---
Date/Time of Note Date/Time of Note DATE: 05/21/18 TIME: 15:31 Assessment/Plan VTE Prophylaxis Risk score (from Nsg)>0 risk: 4 SCD applied (from Nsg): Yes Pharmacological prophylaxis: heparin Lines/Catheters IV Catheter Type (from Nrsg): Peripheral IV Assessment/Plan Assessment/Plan Assessment: Persistent nausea/vomiting S/p EGD 05/20/18 -H Pylori gastritis Poor appetite Upper abdominal discomfort History of thyroidectomy Plan: H pylori treatment: Amoxicillin 1G BID x 14 days, Clarithromycin 500MG PO Q 12h x 14 days, Omeprazole 20MG PO BID x 14 days F/u in GI clinic in 2 months for breath test Patient seen in collaboration with Dr. Tucker Subjective: Patient is feeling well. She denies abdominal pain, nausea or vomiting. She is tolerating present diet well. Results of EGD and biopsy discussed with the patient. Explained the treatment for H pylori and the follow-up with a breath test as an outpatient. PHYSICAL EXAMINATION: GENERAL: Well developed, well nourished, alert & oriented x 3, in no acute distress SKIN: No lesions, no stigmata chronic liver disease, no evidence of bleeding diathesis LYMPHATIC: No palpable lymphadenopathy. HEAD: Normocephalic, atraumatic, no tenderness. EYES: Pupils equal reactive to light and accommodation, full extraocular movements, sclera clear, non-icteric, no discharge. EARS/NOSE AND THROAT: Ears normal, nose normal, oropharynx normal, oral membranes well hydrated without lesions. NECK: Supple, no masses, thyroid normal, JVP within normal limits, carotids normal without bruits. CHEST: Inspection within normal limits. CARDIOVASCULAR: Heart: Regular rate and rhythm, no murmurs, gallops or rubs. Peripheral pulses present within normal limits, no cyanosis, clubbing or edemas. No pulsatile abdominal mass RESPIRATORY: Lungs clear to auscultation and percussion, no wheezing, no rubs GASTROINTESTINAL AND LIVER: Abdomen: Soft, non tenderness, non-distended, no hernias, no masses, no organomegaly, no ascites, no guarding, no rebound tenderness, normoactive bowel sounds. Rectal: Deferred. GENITOURINARY: Female genitalia within normal limits. EXTREMITIES: No cyanosis, clubbing or edema. Result Diagram: 05/21/18 0501 05/21/18 0501 Results 24hrs Laboratory Tests Test 05/21/18 05:01 White Blood Count 6.8 Red Blood Count 4.45 Hemoglobin 13.0 Hematocrit 39.1 Mean Corpuscular Volume 87.9 Mean Corpuscular Hemoglobin 29.2 Mean Corpuscular Hemoglobin Concent 33.2 Red Cell Distribution Width 14.2 Platelet Count 239 Mean Platelet Volume 10.1 Immature Granulocytes % 0.100 Neutrophils % 49.9 Lymphocytes % 39.0 Monocytes % 5.9 Eosinophils % 4.4 Basophils % 0.7 Nucleated Red Blood Cells % 0.0 Immature Granulocytes # 0.010 Neutrophils # 3.4 Lymphocytes # 2.7 Monocytes # 0.4 Eosinophils # 0.3 Basophils # 0.1 Nucleated Red Blood Cells # 0.0 Prothrombin Time 12.5 Prothrombin Time Ratio 1.0 INR International Normalized Ratio 0.92 Sodium Level 137 Potassium Level 3.7 Chloride Level 103 Carbon Dioxide Level 24 Anion Gap 10 Blood Urea Nitrogen 15 Creatinine 0.89 Est Glomerular Filtrat Rate mL/min Glucose Level 123 Calcium Level 9.2 Total Bilirubin 1.1 Direct Bilirubin 0.00 Indirect Bilirubin 1.1 Aspartate Amino Transf (AST/SGOT) 28 Alanine Aminotransferase (ALT/SGPT) 17 Alkaline Phosphatase 72 Lactate Dehydrogenase 340 Total Protein 6.9 Albumin 4.1 Globulin 2.80 Albumin/Globulin Ratio 1.46 Lipase 182 CC: PRIYANKA NGUYEN MD ; Exam/Review of Systems Vital Signs Vitals Vital Signs Date Temp Pulse Resp B/P (MAP) Pulse Ox O2 O2 Flow FiO2 Time Delivery Rate 05/21/18 69 12:00 05/21/18 98.7 17 115/62 98 11:37 (79) 05/20/18 Room Air 20:00 Intake and Output 05/20/18 05/20/18 05/21/18 1515:00 23:00 07:00 IntakeIntake Total 50 ml BalanceBalance 50 ml Medications Medications Current Medications IV Flush (NS 3 ml) 3 ml PER PROTOCOL IV ; Start 05/19/18 at 04:30 Ondansetron HCl (Zofran Inj) 4 mg Q6H PRN IV NAUSEA AND/OR VOMITING Last administered on 05/19/18at 21:36; Admin Dose 4 MG; Start 05/19/18 at 04:30 Nitroglycerin (Nitroglycerin (Sl Tab) 0.4 Mg) 1 tab Q5M PRN SL CHEST PAIN; Start 05/19/18 at 04:30 Acetaminophen (Tylenol Tab) 650 mg Q6H PRN PO PAIN LEVEL 1-3 OR FEVER Last administered on 05/19/18 08:40; Admin Dose 650 MG; Start 05/19/18 at 04:30 Heparin Sodium (Porcine) (Heparin (5000 Units/1ml)) 5,000 unit Q12 SC Last administered on 05/21/18 09:01; Admin Dose 5,000 UNIT; Start 05/19/18 at 09:00 Albuterol/ Ipratropium (Duoneb) 3 ml Q2H RESP THERAPY PRN HHN SHORTNESS OF BREATH; Start 05/19/18 at 04:30 Levothyroxine Sodium (Synthroid) 88 mcg BEFORE BREAKFAST PO Last administered on 05/21/18at 06:01; Admin Dose 88 MCG; Start 05/19/18 at 07:00 Lorazepam (Ativan) 1 mg DAILY PRN PO ANXIETY Last administered on 05/21/18 02:58; Admin Dose 1 MG; Start 05/19/18 at 04:30 Meclizine HCl (Antivert) 25 mg Q8H PRN PO dizzy, vertigo; Start 05/19/18 at 04:30 Metoprolol Succinate (Toprol Xl) 25 mg DAILY PO Last administered on 05/21/18 08:48; Admin Dose 25 MG; Start 05/19/18 at 09:00 Pantoprazole (Protonix Tab) 40 mg DAILY@06 PO Last administered on 05/21/18 05:47; Admin Dose 40 MG; Start 05/19/18 at 06:00 GEOFF CARDOSO NP May 21, 2018 15:46
--- NOTE | 2018-05-21 23:47 | DS ---
Date/Time of Note Date/Time of Note DATE: 05/21/18 TIME: 23:44 Discharge Summary Admission/Discharge Info Admit Date/Time May 19, 2018 at 03:49 Discharge Date/Time May 21, 2018 at 18:00 Patient Condition: Stable Consults Dr. Abreu Procedures Chest x-ray IMPRESSION: Mild interstitial prominence without superimposed CHF, infiltrate or pneumothorax, stable in appearance. Aortic atherosclerotic calcification. EGD: Mild gastritis H. pylori positive MICROSCOPIC DIAGNOSIS: A-Duodenal biopsies: -- Duodenal mucosa with a small nodular lymphoid aggregate and no significant histopathological features. -- No villous atrophy, increase of intraepithelial lymphocytes, parasitic or ganisms or granulomas identified. B-Gastric biopsies: -- Moderate, focally active, superficial chronic gastritis with a tiny lymphoid aggregate. -- A Giemsa stain with an appropriate control is positive for Helicobacter pylori organisms. -- No dysplasia or intestinal metaplasia is identified.05/21/18 Hx of Present Illness 83-year-old female admitted with on and off chest pain. Hospital Course Evaluated managed for atypical chest pain. Rule out for ACS by enzymes EKG symptoms. Next seen by GI. EGD showing mild gastritis and positive H. pylori. Patient was comfortable stabilized and discharged today. I will call in her prescription for her H. pylori treatment. Case management is assisting in follow-ups. Assessment and plan 1. Atypical chest pain ruled out for ACS by enzymes EKG symptoms. Stable discharge 2. Nausea vomiting: symptomatic gastritis. Stable, sp EGD 3. Mild cognitive impairment versus dementia? Rescreen as outpatient 4. Coronary disease? Stroke? History of Plavix use 5. Type 2 diabetes 6. Dyslipidemia 7. Metabolic syndrome 8. Hypothyroidism 9. Diverticulosis Home Meds Active Scripts Amoxicillin/Potassium Clav (Amox-Clav 875-125 mg Tablet) 875-125 mg Tab, 1 TAB PO BID for 10 Days, #20 TAB Prov:LYNN CHAPARRO MD 02/27/18 Ondansetron (Ondansetron Odt) 4 Mg Tab.rapdis, 4 MG PO Q6H PRN for NAUSEA AND/OR VOMITING, #10 TAB Prov:REBA BEYER MD 02/27/18 Reported Medications Levothyroxine Sodium* (Synthroid*) 88 Mcg Tablet, 88 MCG PO BEFORE BREAKFAST, #30 TAB 02/27/18 Rosuvastatin Calcium* (Crestor*) 20 Mg Tablet, 20 MG PO QHS, #30 TAB 02/27/18 Dexlansoprazole (Dexilant) 60 Mg Cap, 60 MG PO DAILY, #30 CAP 02/27/18 Lubiprostone* (Amitiza*) 24 Mcg Capsule, 24 MCG PO BID, #60 CAP 02/27/18 Metoprolol Succinate* (Toprol XL*) 25 Mg Tab.sr.24h, 25 MG PO DAILY, #30 TAB 02/27/18 Clopidogrel Bisulfate (Clopidogrel) 75 Mg Tablet, 75 MG PO DAILY, #30 TAB 02/27/18 Glimepiride* (Glimepiride*) 4 Mg Tablet, 4 MG PO WITH BREAKFAST DINNE, TAB 02/27/18 Metformin Hcl* (Metformin Hcl*) 500 Mg Tablet, 500 MG PO WITH BREAKFAST, #30 TAB 02/27/18 Meclizine Hcl* (Meclizine Hcl*) 25 Mg Tablet, 25 MG PO Q8H PRN for DIZZINESS, TAB 02/27/18 Memantine* (Namenda* XR) 14 Mg Cap.spr.24, 14 MG PO DAILY, #30 TAB 02/27/18 Donepezil* (Aricept*) 10 Mg Tablet, 10 MG PO DAILY, TAB 02/27/18 Lorazepam* (Lorazepam*) 1 Mg Tablet, 1 MG PO DAILY PRN for ANXIETY, #30 TAB 02/27/18 Amlodipine Bes/Olmesartan Med (Amlodipine-Olmesartan 5-20 mg) 1 Each Tablet, 1 EACH PO DAILY, TAB 02/27/18 Primary Care Provider Not On Staff Doctor Time spent on discharge: > 30 minutes Pending Labs Laboratory Tests Test 05/21/18 05:01 White Blood Count 6.8 10^3/ul (4.8-10.8) Red Blood Count 4.45 10^6/ul (4.20-5.40) Hemoglobin 13.0 g/dl (12.0-16.0) Hematocrit 39.1 % (37.0-47.0) Mean Corpuscular Volume 87.9 fl (82.0-101.0) Mean Corpuscular Hemoglobin 29.2 pg (29.0-33.0) Mean Corpuscular Hemoglobin Concent 33.2 g/dl (32.0-37.0) Red Cell Distribution Width 14.2 % (11.5-14.5) Platelet Count 239 10^3/UL (140-415) Mean Platelet Volume 10.1 fl (7.4-10.4) Immature Granulocytes % 0.100 % (0.001-0.429) Neutrophils % 49.9 % (39.0-77.0) Lymphocytes % 39.0 % (15.0-51.0) Monocytes % 5.9 % (0.0-11.0) Eosinophils % 4.4 % (0.0-7.0) Basophils % 0.7 % (0.0-2.0) Nucleated Red Blood Cells % 0.0 /100WBC (0.0-0.0) Immature Granulocytes # 0.010 10^3/ul (0.0-0.031) Neutrophils # 3.4 10^3/ul (1.6-7.5) Lymphocytes # 2.7 10^3/ul (0.8-2.9) Monocytes # 0.4 10^3/ul (0.3-0.9) Eosinophils # 0.3 10^3/ul (0.0-0.5) Basophils # 0.1 10^3/ul (0.0-0.1) Nucleated Red Blood Cells # 0.0 10^3/ul (0.0-0.0) Prothrombin Time 12.5 Sec (11.9-14.9) Prothrombin Time Ratio 1.0 INR International Normalized Ratio 0.92 Sodium Level 137 mmol/L (135-144) Potassium Level 3.7 mmol/L (3.5-5.1) Chloride Level 103 mmol/L (97-110) Carbon Dioxide Level 24 mmol/L (21-31) Anion Gap 10 (5-13) Blood Urea Nitrogen 15 mg/dl (7-20) Creatinine 0.89 mg/dl (0.44-1.00) Est Glomerular Filtrat Rate mL/min mL/min (>60) Glucose Level 123 mg/dl (70-220) Calcium Level 9.2 mg/dl (8.4-10.2) Total Bilirubin 1.1 mg/dl (0.2-1.3) Direct Bilirubin 0.00 mg/dl (0.00-0.20) Indirect Bilirubin 1.1 mg/dl (0-1.1) Aspartate Amino Transf (AST/SGOT) 28 IU/L (15-46) Alanine Aminotransferase (ALT/SGPT) 17 IU/L (13-69) Alkaline Phosphatase 72 IU/L (42-121) Lactate Dehydrogenase 340 IU/L (313-618) Total Protein 6.9 g/dl (6.1-8.1) Albumin 4.1 g/dl (3.3-4.9) Globulin 2.80 g/dl (1.3-3.2) Albumin/Globulin Ratio 1.46 Lipase 182 U/L (23-300) SIENNA SAUCEDA MD May 21, 2018 23:47
== END 2018-05-21 18:00 | disposition home health service (06) ==
LOC: E/R 01:47 → ICU 03:49 → CANRESERV 11:29 → EDBEDREQ 11:30 → 6WM 12:40
PROVIDERS: ADMIT Internal Medicine; ATTEND Internal Medicine
DX: R07.89 Other chest pain (principal); K29.50 Unspecified chronic gastritis without bleeding; B96.81 Helicobacter pylori [H. pylori] as the cause of diseases classified elsewhere; I10 Essential (primary) hypertension; E78.5 Hyperlipidemia, unspecified; E11.9 Type 2 diabetes mellitus without complications; E03.9 Hypothyroidism, unspecified; K57.30 Diverticulosis of large intestine without perforation or abscess without bleeding; E88.81 Metabolic syndrome and other insulin resistance; Z23 Encounter for immunization
CPT/HCPCS: 36415; 43239; 71045; 80053; 80061; 82550; 82553; 82962; 83036; 83615; 83690; 83735; 83880; 84443; 84484; 85025; 85610; 87081; 90686; 93005; 93306; 99285; G0378; J1644; J2405; J7042; 88305; 88312